=== PATIENT | female | born 1935 | race Caucasian/White ===

== ENCOUNTER 2018-01-25 20:30 | Emergency (ER) | payer MEDICARE, BC ==
[~2018-01-25] VITALS: Ht 165.1 cm; Wt 88.5 kg
[~2018-01-25 20:30] MED LIST: ACEBUTCAFT PO; ASPI325; ASPI325 PO; ASPI325EC PO; AZIT250 PO; Apidra Sol100 UNIT/1; Apidra100 UNIT/2; BENZ100A PO; CHOL10002; CYAN500 PO; EXEN5PENI SQ; EXEN5PENI SUBQ; Hair, Skin & N1 EACH PO; Humalog100 UNIT/1 SC; INSULANI SUBQ; INSULANPEN SC; LEVSOD100 PO; LEVSOD125 PO; LORA.5 PO; LORPSEER24 PO; MECL12.5 PO; MECL25 PO; MEPE50 PO; META800 PO; METF500 PO; METF500C PO; NEW INSULIN; NYST100TC TOP; OLME20 PO; OLME20-12. PO; PANT40; PANT40 PO; PROACE100 PO; PROC25S PR; PROM25 PO; SITA50T2 PO; Super B Comple150 MG PO; THYR60 PO; TUMERIC; UBID10; VITAMIN D31000 UNIT PO; Zofran Odt4 MG SL
== END 2018-01-25 22:02 | disposition home or self-care (01) ==
LOC: ER 20:30
DX: S92.412A Displaced fracture of proximal phalanx of left great toe, initial encounter for closed fracture (principal); E11.9 Type 2 diabetes mellitus without complications; Z88.8 Allergy status to other drugs, medicaments and biological substances; Z88.5 Allergy status to narcotic agent; Z91.09 Other allergy status, other than to drugs and biological substances; Z91.018 Allergy to other foods; Z79.899 Other long term (current) drug therapy; Z79.82 Long term (current) use of aspirin; Z79.4 Long term (current) use of insulin; Z87.891 Personal history of nicotine dependence; W22.8XXA Striking against or struck by other objects, initial encounter
CPT/HCPCS: 73630; 99283-25

== ENCOUNTER 2018-07-02 09:30 | Inpatient (IN) | payer MEDICARE, BC ==
[~2018-07-02] VITALS: Ht 165.1 cm; Wt 92.4 kg
[~2018-07-02 09:30] MED LIST changes: -ASPI325; -PANT40; -TUMERIC; +TUMERIC PO; +Zofran8 MG PO
[2018-07-02 09:51] LABS: BASOPHILS ABSOLUTE AUTO 0.05 K/mm3 (0.00-0.23); BASOPHILS PERCENT AUTO 1 % (0-2); EOSINOPHILS PERCENT AUTO 4 % (0-6); Hematocrit 43.9 % (33.0-51.0); Hemoglobin 14.8 g/dL (11.5-16.0); IMMATURE GRAN ABSOLUTE AUTO 0.01 K/mm3 (0.00-0.10); IMMATURE GRAN PERCENT AUTO 0 % (0-1); LYMPHOCYTES ABSOLUTE AUTO 2.29 K/mm3 (0.84-5.20); LYMPHOCYTES PERCENT AUTO 44 % (21-46); MONOCYTES ABSOLUTE AUTO 0.66 K/mm3 (0.16-1.47); MONOCYTES PERCENT AUTO 13 % (4-13); Mean Corpuscular HGB 31.7 pg (26.0-34.0); Mean Corpuscular HGB Conc 33.7 g/dL (31.5-36.5); Mean Corpuscular Volume 94 fL (80-100); Mean Platelet Volume 10.2 fL (9.1-12.4); NEUTROPHILS ABSOLUTE AUTO 2.04 K/mm3 (1.96-9.15); NEUTROPHILS PERCENT AUTO 39 % (41-73); Platelet Count 228 K/mm3 (150-400); RDW Coefficient Variation 12.4 % (11.7-14.2); RDW Standard Deviation 43.3 fL (35.1-46.3); Red Blood Cell Count 4.67 M/mm3 (3.80-5.20); White Blood Cell Count 5.25 K/mm3 (4.00-11.30)
[2018-07-02 09:55] LABS: Calcium, Ionized (POC) 1.16 mmol/L (1.10-1.46); Chloride (POC) 108 mmol/L (98-108); Creatinine (POC) 0.9 mg/dL (0.6-1.0); Glucose (ISTAT POC) 164 mg/dL (70-99); Hemoglobin (POC) 14.3 g/dL (12.0-16.0); Potassium (POC) 3.7 mmol/L (3.5-5.5); Sodium (POC) 144 mmol/L (135-148); Total CO2 (POC) 20 mmol/L (21-32)
[2018-07-02 10:13] LABS: Alanine Aminotransfer (ALT/SGP 40 U/L (12-78); Albumin, Blood 3.7 g/dL (3.4-5.0); Albumin/Globulin Ratio 1.2 (0.8-1.8); Alk Phos 52 U/L (50-136); Anion Gap 10 mmol/L (6-16); Aspartate Aminotrans (AST/SGOT 24 U/L (12-37); Bilirubin, Total 0.6 mg/dL (0.1-1.0); Blood Urea Nitrogen 27 mg/dL (8-24); Bun/Creatinine Ratio 28.8 (12.0-20.0); CO2, Blood 20 mmol/L (21-32); Calcium, Blood 8.6 mg/dL (8.5-10.1); Chloride, Blood 114 mmol/L (98-108); Creatinine, Blood 0.94 mg/dL (0.40-1.00); Globulin, Blood 3.2 g/dL (2.2-4.0); Glomerular Filtration Rate >60 (60-); Glucose, Blood 155 mg/dL (70-99); Potassium, Blood 3.7 mmol/L (3.5-5.5); Sodium, Blood 144 mmol/L (136-145); Total Protein, Blood 6.9 g/dL (6.4-8.2); Troponin I <0.015 ng/mL (0.000-0.040)
--- NOTE | 2018-07-02 18:52 | NUR ---
END OF SHIFT PT EDUCATED ON THE PLAN, VSS, PT HAS HAD NO CHANGES PT BP IS LOWERING WNL, VSS, PT HAS HAD FIRST DOSE OC COREG, PT ABLE TO AMBULATE TO TTHE BEDSIDE COMODE
[2018-07-03 04:03] LABS: BASOPHILS ABSOLUTE AUTO 0.03 K/mm3 (0.00-0.23); BASOPHILS PERCENT AUTO 0 % (0-2); EOSINOPHILS ABSOLUTE AUTO 0.14 K/mm3 (0.00-0.68); EOSINOPHILS PERCENT AUTO 2 % (0-6); Hematocrit 42.9 % (33.0-51.0); Hemoglobin 14.2 g/dL (11.5-16.0); IMMATURE GRAN ABSOLUTE AUTO 0.01 K/mm3 (0.00-0.10); IMMATURE GRAN PERCENT AUTO 0 % (0-1); LYMPHOCYTES ABSOLUTE AUTO 2.17 K/mm3 (0.84-5.20); LYMPHOCYTES PERCENT AUTO 33 % (21-46); MONOCYTES PERCENT AUTO 12 % (4-13); Mean Corpuscular HGB 31.7 pg (26.0-34.0); Mean Corpuscular HGB Conc 33.1 g/dL (31.5-36.5); Mean Corpuscular Volume 96 fL (80-100); NEUTROPHILS ABSOLUTE AUTO 3.53 K/mm3 (1.96-9.15); NEUTROPHILS PERCENT AUTO 53 % (41-73); Platelet Count 225 K/mm3 (150-400); RDW Coefficient Variation 12.5 % (11.7-14.2); RDW Standard Deviation 44.7 fL (35.1-46.3); Red Blood Cell Count 4.48 M/mm3 (3.80-5.20); White Blood Cell Count 6.68 K/mm3 (4.00-11.30)
[2018-07-03 04:25] LABS: Anion Gap 8 mmol/L (6-16); Blood Urea Nitrogen 20 mg/dL (8-24); CO2, Blood 23 mmol/L (21-32); Chloride, Blood 111 mmol/L (98-108); Creatinine, Blood 0.91 mg/dL (0.40-1.00); Free Thyroxine 1.06 ng/dL (0.70-1.60); Glomerular Filtration Rate >60 (60-); Glucose, Blood 112 mg/dL (70-99); Potassium, Blood 3.8 mmol/L (3.5-5.5); Sodium, Blood 142 mmol/L (136-145)
[2018-07-03 04:27] LABS: Troponin I 0.595 ng/mL (0.000-0.040)
--- NOTE | 2018-07-03 06:04 | NUR ---
SHIFT SUMMARY PATIENT PLEASENT AND COOPERATIVE THROUGHOUT THE NIGHT. PATIENT STATES SHE HAS MILD LEFT SHOULDER AND ARM PAIN THAT SHE STATES IS USUALLY AT ABOUT A 3/10 WHICH SHE SAYS IS TOLERABLE. PATIENT MEDICATED NEEDED FOR INCREASING PAIN PER EMAR. PATIENT APPEARED TO SLEEP WELL THROUGHOUT THE NIGHT. PATIENT'S DAUGHTER STAYED AT THE BEDSIDE. DR HOBBS MADE AWARE OF CRITICAL TROPONIN OF 0.595 THIS MORNING AND SHE GAVE NO ORDERS AT THIS TIME. PATIENT CURRENTLY APPEARS TO BE ASLEEP. WILL CONTINUE TO MONITOR PATIENT AND REPORT TO ONCOMING RN.
--- NOTE | 2018-07-03 14:28 | NUR ---
Echocardiogram completed.
--- NOTE | 2018-07-03 19:15 | NUR ---
END OF SHIFT PT HAS HAD NO CHAGNES, VSS, PT IS AWARE OF THE PLAN, FAMILY EDUCATED ON THE PLAN
--- NOTE | 2018-07-04 06:41 | NUR ---
SHIFT SUMMARY PT ADMITTED FOR CHEST PAIN AND HTN. AT THIS TIME HER BPS HAVE BEEN WNL. SHE DENIES ACTIVE CHEST PAIN. HER TROPS WERE ELEVATED BUT THEY ARE TRENDING DOWN. SHE IS SCHEDULED FOR A STRESS TEST TODAY. NO COVERAGE INDICATED AT HS. TELE WAS NSR IN THE 60S-80S. SHE REPORTS FEELING BETTER THIS MORNING AND IS AMBULATING INTO THE BATHROOM THIS MORNING RATHER THAN USING THE BSC. MEDICATED FOR LEFT SHOULDER PAIN PER EMAR. PT IS A&O, ABLE TO MAKE NEEDS KNOWN. WILL CTM UNTIL PASS TO NEXT SHIFT.
--- NOTE | 2018-07-04 09:15 | NUR ---
NAUSEA AND STRESS TEST PT C/O OF NAUSEA. MEDICATED WITH ZOFRAN PER PT REQUEST. SHE ASKED TO DELAY HER MORNING MEDICATIONS UNTIL HER STOMACH SETTLES. SHE WILL CALL. NPO FOR PENDING STRESS TEST. CALLED IMAGING. HAD TO REORDER YANCY SCAN A NUC. MED SCAN. CONFIRMED WITH IMAGING THAT NUC. MED TECH IS COMING IN. NOT SURE OF ETA. TALKED WITH PT/FAMILY ABOUT STRESS TEST. HOLDING BREAKFAST TRAY. CONTINUE POT.
--- NOTE | 2018-07-04 09:56 | NUR ---
MORNING PILLS NOTIFIED DR HOBBS AND DR BETHEA OF PT STOMACH BEING TOO UPSET TO TAKE PILLS. SHE DID TAKE HER PROTONIX WITH APPLE JUICE. CONTINUE POT.
--- NOTE | 2018-07-04 10:26 | NUR ---
Nausea Pt was injected for stress test. She needed to eat after. She choose to eat her hard boiled egg with salt and pepper, tea with stevia. She was able to eat 1 egg. Then asked for toast. She doesn't have emesis she just dry heaves. Continue pot.
--- NOTE | 2018-07-04 11:24 | NUR ---
STRESS TEST PT TRANSFERED TO / WITH 1 ASSIST FOR STRESS TEST. PT A LITTLE UNSTEADY AND SLEEPY AFTER RECEIVING PHENERGAN X1. CONTINUE POT.
--- NOTE | 2018-07-04 18:45 | NUR ---
EVENING NOTE PT AWAKE AND ALERT. SR. NO ECTOPY. PT HAS DENIED PAIN, SHOULDER PAIN OR CHEST PAIN ALL DAY. FIRST PART OF THE STRESS TEST COMPLETED. MRI COMPLETED. PT FELL ASLEEP IN THE MRI TUBE. VSS. PT NAUSEA SUBSIDED AFTER RECEIVING PHENERGAN AND A NAP. PT ABLE TO TAKE HER MORNING MEDICATIONS AND EAT DINNER WITHOUT DIFFICULTY. PT THINKS THE NAUSEA WAS FROM THE OXYCODONE THAT SHE WAS TAKING. CONTINUE POT.
--- NOTE | 2018-07-05 05:51 | NUR ---
SUMMARY NO ACUTE CHANGES NOTED FROM ASSESSMENT. PT REPORTED PAIN X1, SHE WAS TREATED WITH TORADOL, PAIN WAS RELIEVED. PT HAS SLEPT THROUGH THE NIGHT WITH NO PROBLEMS. CALL LIGHT IN [facility].
--- NOTE | 2018-07-05 13:01 | NUR ---
DAVID SCAN PT COMPLETED THE SECOND PART OF THE SCAN. SHE NOW HAS A HEADACHE. SITTINGUP DRINKING AND EATING LUNCH. SPOUCE AT BEDSIDE. CONTINUE POT.
--- NOTE | 2018-07-06 05:27 | NUR ---
SHIFT SUMMARY PT A&O X4, CALM COOPERATIVE, & INDEPENDENT IN ROOM. FAMILY AT BEDSIDE BEGINNING OF SHIFT. PT DENYING CP T/O SHIFT. VSS. LUNG SOUNDS CLEAR, SPO2 > 92% ON RA. MONITOR SHOWS SB/SR, HR 50'S-60'S. PT STATES CONINUANCE OF L SHOULDER PAIN, TX'D PER EMAR W/ REDUCTION IN PAIN. PT SLEEPING IN ROOM. WILL CONTINUE TO MONITOR AND PROVIDE CARE UNTIL REPORT OFF TO DAY SHIFT RN.
--- NOTE | 2018-07-06 07:51 | NUR ---
INITIAL ASSESSEMTN: Pt sitting up at edge of bed. A/O x 4. Denies having any pain at this time. States that she feels good. LS clear. HR reg, bradycardic in the 50's. BT positive. Pulses palp. Physician in to see client. Plan for discharge today. Pt denies needs. Will monitor.
[2018-07-06] MEDS ORDERED: ATORVASTATIN CA20 MG PO (10:43)
[2018-07-06] MEDS ORDERED: METO25 PO (10:43)
--- NOTE | 2018-07-06 11:04 | NUR ---
DISCHARGE: Pt given verbal and written discharge instructions. Verbalized understanding, denies questions. IV was discontinued and cath intact. Pt denies pain, questions, issues. Escort called and will take patient out via w/c. Stable at time of discharge.
== END 2018-07-06 11:05 | disposition home or self-care (01) | DRG 305 ==
LOC: ER 09:30 → PCU 09:31
PROVIDERS: Emergency Medicine; ADMIT Family Medicine
DX: I16.1 Hypertensive emergency (principal); M19.90 Unspecified osteoarthritis, unspecified site; E03.9 Hypothyroidism, unspecified; K44.9 Diaphragmatic hernia without obstruction or gangrene; Z86.73 Personal history of transient ischemic attack (TIA), and cerebral infarction without residual deficits; Z96.641 Presence of right artificial hip joint; I10 Essential (primary) hypertension; Z87.891 Personal history of nicotine dependence; Z79.4 Long term (current) use of insulin; E66.9 Obesity, unspecified; Z89.212 Acquired absence of left upper limb below elbow; Z68.33 Body mass index [BMI] 33.0-33.9, adult; M54.12 Radiculopathy, cervical region; M48.02 Spinal stenosis, cervical region; Z79.82 Long term (current) use of aspirin
CPT/HCPCS: 36415; 71275; 72040; 72070; 72141; 74175; 78452; 80047; 80048; 80053; 82947; 84439; 84443; 84480; 84484; 85014; 85025; 85651; 93005; 93010; 93017; 93306; 96374; 96375; 96376; 99285-25; A9500; G0378; J0706; J1650; J1885; J2060; J2405; J2550; J2785; J3010; Q9967

== ENCOUNTER 2018-11-25 22:25 | Emergency (ER) | payer MEDICARE, BC ==
[~2018-11-25] VITALS: Ht 165.1 cm; Wt 93.0 kg
[~2018-11-25 22:25] MED LIST changes: +ATORVASTATIN CA20 MG PO; +METO25 PO
[2018-11-26 00:02] LABS: BASOPHILS ABSOLUTE AUTO 0.02 K/mm3 (0.00-0.23); BASOPHILS PERCENT AUTO 0 % (0-2); EOSINOPHILS ABSOLUTE AUTO 0.06 K/mm3 (0.00-0.68); EOSINOPHILS PERCENT AUTO 1 % (0-6); Hematocrit 42.7 % (33.0-51.0); Hemoglobin 14.3 g/dL (11.5-16.0); IMMATURE GRAN ABSOLUTE AUTO 0.01 K/mm3 (0.00-0.10); IMMATURE GRAN PERCENT AUTO 0 % (0-1); LYMPHOCYTES ABSOLUTE AUTO 1.14 K/mm3 (0.84-5.20); LYMPHOCYTES PERCENT AUTO 19 % (21-46); MONOCYTES ABSOLUTE AUTO 0.62 K/mm3 (0.16-1.47); MONOCYTES PERCENT AUTO 10 % (4-13); Mean Corpuscular HGB 32.2 pg (26.0-34.0); Mean Corpuscular HGB Conc 33.5 g/dL (31.5-36.5); Mean Corpuscular Volume 96 fL (80-100); NEUTROPHILS ABSOLUTE AUTO 4.28 K/mm3 (1.96-9.15); NEUTROPHILS PERCENT AUTO 70 % (41-73); RDW Coefficient Variation 12.5 % (11.7-14.2); RDW Standard Deviation 45.2 fL (35.1-46.3); Red Blood Cell Count 4.44 M/mm3 (3.80-5.20); White Blood Cell Count 6.13 K/mm3 (4.00-11.30)
[2018-11-26 00:04] LABS: Mean Platelet Volume 10.2 fL (9.1-12.4); Platelet Count 116 K/mm3 (150-400)
[2018-11-26 00:20] LABS: Alanine Aminotransfer (ALT/SGP 19 U/L (12-78); Albumin, Blood 3.4 g/dL (3.4-5.0); Albumin/Globulin Ratio 0.9 (0.8-1.8); Alk Phos 50 U/L (50-136); Anion Gap 9 mmol/L (6-16); Aspartate Aminotrans (AST/SGOT 18 U/L (12-37); Bilirubin, Total 0.5 mg/dL (0.1-1.0); Blood Urea Nitrogen 21 mg/dL (8-24); Bun/Creatinine Ratio 21.1 (12.0-20.0); CO2, Blood 20 mmol/L (21-32); Calcium, Blood 8.3 mg/dL (8.5-10.1); Chloride, Blood 110 mmol/L (98-108); Globulin, Blood 3.8 g/dL (2.2-4.0); Glomerular Filtration Rate 57 (60-); Glucose, Blood 82 mg/dL (70-99); Potassium, Blood 3.9 mmol/L (3.5-5.5); Sodium, Blood 139 mmol/L (136-145); Total Protein, Blood 7.2 g/dL (6.4-8.2); Troponin I <0.015 ng/mL (0.000-0.040)
[2018-11-26 00:21] LABS: Source, Urine Clean Catch
[2018-11-26 00:24] LABS: Appearance, Urine Clear (Clear); Bilirubin, Urine Neg (Neg); Blood, Urine 1+ (Neg); Color, Urine Amber (P-Yellow); Glucose Qualitative, Urine Neg (Neg); Ketones, Urine 2+ (Neg); Leukocyte Esterase, Urine 1+ (Neg); Nitrite, Urine Neg (Neg); Protein, Urine 1+ (Neg); Specific Gravity, Urine 1.015 (1.003-1.022); Urobilinogen, Urine NORM (Normal)
[2018-11-26 00:31] LABS: Bacteria Many /hpf; Red Blood Cells, Urine 0-2 /hpf (0-2); Squamous Epithelial Cells Mod /hpf (Few)
[2018-11-26] MEDS ORDERED: CEPH500 PO (00:48)
[2019-01-25] MEDS ORDERED: PANT40 PO (11:18)
[2019-01-25] MEDS ORDERED: NP THYROID 120120 MG PO (11:18)
[2019-01-25] MEDS ORDERED: Aspir-Trin325 MG PO (11:19)
[2019-01-25] MEDS ORDERED: INSULANPEN SC ×2 (11:20→11:21)
[2019-01-25] MEDS ORDERED: GLIM2 PO (11:21)
[2019-01-25] MEDS ORDERED: MOTION RELIEF25 MG PO (11:21)
[2019-01-25] MEDS ORDERED: Azor 5-20 MG T1 EACH PO (11:22)
[2019-01-25] MEDS ORDERED: POTCHL20ER PO (11:23)
== END 2018-11-26 01:40 | disposition home or self-care (01) ==
LOC: ER 22:25
PROVIDERS: Physician Assistant
DX: N39.0 Urinary tract infection, site not specified (principal); Z88.8 Allergy status to other drugs, medicaments and biological substances; Z88.5 Allergy status to narcotic agent; Z79.899 Other long term (current) drug therapy; Z79.4 Long term (current) use of insulin; Z79.82 Long term (current) use of aspirin; E11.9 Type 2 diabetes mellitus without complications; Z86.73 Personal history of transient ischemic attack (TIA), and cerebral infarction without residual deficits; I10 Essential (primary) hypertension; E78.00 Pure hypercholesterolemia, unspecified; E03.9 Hypothyroidism, unspecified; Z87.891 Personal history of nicotine dependence
CPT/HCPCS: 36415; 71046; 80053; 81001; 83605; 83880; 84484; 85025; 87040; 87086; 93005; 93010; 96361; 96374; 96375; 99283-25; J0696; J2405; J7030

== ENCOUNTER 2018-12-24 02:15 | Inpatient (IN) | payer MEDICARE, BC ==
[~2018-12-24] VITALS: Ht 165.1 cm; Wt 98.4 kg
[~2018-12-24 02:15] MED LIST changes: +CEPH500 PO
[2018-12-24 03:13] LABS: BASOPHILS ABSOLUTE AUTO 0.02 K/mm3 (0.00-0.23); BASOPHILS PERCENT AUTO 0 % (0-2); EOSINOPHILS PERCENT AUTO 0 % (0-6); Hematocrit 49.9 % (33.0-51.0); Hemoglobin 16.6 g/dL (11.5-16.0); IMMATURE GRAN ABSOLUTE AUTO 0.05 K/mm3 (0.00-0.10); IMMATURE GRAN PERCENT AUTO 0 % (0-1); LYMPHOCYTES ABSOLUTE AUTO 1.03 K/mm3 (0.84-5.20); LYMPHOCYTES PERCENT AUTO 7 % (21-46); MONOCYTES PERCENT AUTO 7 % (4-13); Mean Corpuscular HGB 31.6 pg (26.0-34.0); Mean Corpuscular HGB Conc 33.3 g/dL (31.5-36.5); Mean Corpuscular Volume 95 fL (80-100); Mean Platelet Volume 10.9 fL (9.1-12.4); NEUTROPHILS ABSOLUTE AUTO 12.67 K/mm3 (1.96-9.15); NEUTROPHILS PERCENT AUTO 86 % (41-73); Platelet Count 243 K/mm3 (150-400); RDW Coefficient Variation 13.2 % (11.7-14.2); RDW Standard Deviation 46.1 fL (35.1-46.3); Red Blood Cell Count 5.25 M/mm3 (3.80-5.20); White Blood Cell Count 14.77 K/mm3 (4.00-11.30)
[2018-12-24 04:43] LABS: Alanine Aminotransfer (ALT/SGP 22 U/L (12-78); Albumin, Blood 3.4 g/dL (3.4-5.0); Alk Phos 50 U/L (50-136); Anion Gap 10 mmol/L (6-16); Aspartate Aminotrans (AST/SGOT 14 U/L (12-37); Bilirubin, Total 0.4 mg/dL (0.1-1.0); Blood Urea Nitrogen 33 mg/dL (8-24); Bun/Creatinine Ratio 37.6 (12.0-20.0); CO2, Blood 19 mmol/L (21-32); Chloride, Blood 112 mmol/L (98-108); Creatinine, Blood 0.88 mg/dL (0.40-1.00); Globulin, Blood 3.3 g/dL (2.2-4.0); Glomerular Filtration Rate >60 (60-); Glucose, Blood 215 mg/dL (70-99); Potassium, Blood 3.2 mmol/L (3.5-5.5); Sodium, Blood 141 mmol/L (136-145); Total Protein, Blood 6.7 g/dL (6.4-8.2)
[2018-12-24 11:42] LABS: Hematocrit 51.5 % (33.0-51.0); Hemoglobin 16.8 g/dL (11.5-16.0)
--- NOTE | 2018-12-24 17:40 | NUR ---
SHIFT SUMMARY PT ALERT AND ORIENTED. VS STABLE. O2 SATS REMAIN ABOVE 90% ON 2L NC. PT COMPLAINS OF PAIN IN HER ABD THAT IS RELEIVED WITH MEDICATION ADMINISTRATION. PT HAVING LIQUID RED BM. NS INFUSING PER ORDERS. WILL CONTINUE TO MONITOR AND REPORT TO ONCOMING RN. CALL LIGHT IN REACH.
--- NOTE | 2018-12-24 20:52 | NUR ---
CARE ASSUMPTION / TRANSFER NOTE PT MEDICAL NO TELE STATUS. PT A&O X4. VSS. PT ON 1L NC UPON CARE ASSUMPTION, TITRATED TO RA W/ SPO2 > 92%. LUNG SOUNDS CLEAR, DIM IN BASES. PT REPORTS 1 ORAGE/RED BM DURING DAY. ABD TENDER AND DISTENDED. PT C/O 10 "SHARP" LOWER ABD PAIN. PT MEDICATED PER EMAR W/ REDUCTION IN PAIN TO 3/10. REPORT CALLED TO MEDICAL FLOOR RN @ 2039. PT BEING TRANSFERRED TO ROOM 306 VIA WHEELCHAIR BY PCT @ THIS TIME.
[2018-12-25 06:14] LABS: BASOPHILS ABSOLUTE AUTO 0.05 K/mm3 (0.00-0.23); BASOPHILS PERCENT AUTO 0 % (0-2); EOSINOPHILS ABSOLUTE AUTO 0.11 K/mm3 (0.00-0.68); EOSINOPHILS PERCENT AUTO 1 % (0-6); Hematocrit 47.6 % (33.0-51.0); Hemoglobin 15.2 g/dL (11.5-16.0); IMMATURE GRAN ABSOLUTE AUTO 0.05 K/mm3 (0.00-0.10); IMMATURE GRAN PERCENT AUTO 0 % (0-1); LYMPHOCYTES PERCENT AUTO 7 % (21-46); MONOCYTES PERCENT AUTO 9 % (4-13); Mean Corpuscular HGB 31.1 pg (26.0-34.0); Mean Corpuscular HGB Conc 31.9 g/dL (31.5-36.5); Mean Platelet Volume 10.5 fL (9.1-12.4); NEUTROPHILS ABSOLUTE AUTO 10.95 K/mm3 (1.96-9.15); NEUTROPHILS PERCENT AUTO 83 % (41-73); Platelet Count 189 K/mm3 (150-400); RDW Coefficient Variation 13.8 % (11.7-14.2); RDW Standard Deviation 49.9 fL (35.1-46.3); Red Blood Cell Count 4.88 M/mm3 (3.80-5.20); White Blood Cell Count 13.26 K/mm3 (4.00-11.30)
[2018-12-25 06:17] LABS: Mean Corpuscular Volume 98 fL (80-100)
[2018-12-25 06:25] LABS: Bun/Creatinine Ratio 15.1 (12.0-20.0); Calcium, Blood 7.6 mg/dL (8.5-10.1); Creatinine, Blood 1.06 mg/dL (0.40-1.00); Potassium, Blood 3.7 mmol/L (3.5-5.5)
--- NOTE | 2018-12-25 06:36 | NUR ---
SHIFT SUMMARY PT TRANSFERED FROM PCU 11 THIS EVENING. ABD PAIN AT START OF SHIFT. MEDICATED WITH 1 MG DILAUDID. PT SLEPT WELL FROM APPROX 2200 TO 0400. WHEN WAKING PT BEGAN TO HAVE ABD PAIN/CRAMPS AGAIN. MEDICATED AGAIN W/ 1 MG DILAUDID. SOON AFTER PT'S IV BEGAN BURNING PATIENT. IV INFILTRATED. ATTEMPTED NEW IV START. JONNY ESTRADA ALSO CAME UP AND ATTEMPTED WITH ULTRASOUND MACHINE AND WAS UNSUCCESSFUL. PROCEDURE NURSE TODAY TO PLACE POWERGLIDE. PT HAD 2 EPISODES OF UNFORMED STOOL, ORANGE/RED IN COLOR. SMALL AMOUNT. VSS. DAUGHTER AT BEDSIDE AT START OF SHIFT. SUPPORTIVE FAMILY. WILL CONTINUE TO MONITOR.
--- NOTE | 2018-12-25 10:40 | NUR ---
SHE HAD A POWERGLIDE INSERTED BEFORE 0830. IV FLUIDS AND MEDICATIONS RESUMED. SHE TOOK A COUPLE OF BITES OF BREAKFAST ONLY. SHE HAD A SMALL JELLY BROWN STOOL. SHE WAS MEDICATED WITH IV DILAUDID WITH GOOD RESULTS. NO N/V. NOW HER IS AT THE BEDSIDE AND HER DAUGHTER YAS CALLED ON THE PHONE FOR AN UPDATE.
--- NOTE | 2018-12-25 13:51 | NUR ---
PT IS EVALUATING HER NOW. SHE JUST AMBULATED IN THE [place] A SHORT DISTANCE AND NOW IS ON THE BSC. HER FAMILY HAS JUST RETURNED BUT WAITING IN THE [place] UNTIL SHE IS OFF THE BSC. DILAUDID IS EFFECTIVE FOR INTERMITTENT PAIN RELIEF.
--- NOTE | 2018-12-25 17:35 | NUR ---
SHE HAS RECEIVED DILAUDID IV FOR COLITIS PAIN X3 THIS SHIFT. THIS LAST TIME THE PAIN SHIFTED AWAY FROM THE ABD AND INTO HER BACK, R FLANK. SHE ALSO FELT LIKE SHE HAD TROUBLE EMPTYING HER BLADDER A COUPLE OF TIMES TODAY. SHE FELT HER LAST VOID WAS COMPLETE. DINNER CBG 66. GIVEN OJ TO DRINK. HER APPETITE HAS BEEN VERY POOR.PT EVAL WAS DONE. SHE AMBULATES WITH A CANE.IVF'S AND ANTIBIOTICS CONTINUE.
--- NOTE | 2018-12-26 05:37 | NUR ---
SHIFT SUMMARY PT'S ABD DISCOMFORT IMPROVED THIS EVENING. MEDICATED X 1 AT START OF SHIFT W/ 1 MG IV DILAUDID, PT DID NOT REQUIRE ANY FURTHER PAIN MEDICATION. PT SLEPT WELL THROUGH MOST OF THE NIGHT. PT HAD TWO SMALL UNFORMED BROWN BM'S. NO SIGN OF BLOOD IN STOOL THIS EVENING. PT WAS EXPERIENCING SOME R SIDED FLANK PAIN. SHE STATED THAT SHE HAD JUST BEEN GETTING OVER A KIDNEY INFECTION RECENTLY AND BELIEVES SHE IS GETTING ANOTHER ONE. PT'S BLOOD SUGAR LOWER AT 114 THIS EVENING. PT DECLINED TO HAVE HER LANTUS DOSE THIS EVENING. BLOOD SUGAR REMAINED LOW IN THE 110'S AND LOW 70'S. VITAL SIGNS STABLE. OTHERWISE NO ACUTE CHANGES. WILL CONTINUE TO MONITOR.
[2018-12-26 10:16] LABS: BASOPHILS ABSOLUTE AUTO 0.01 K/mm3 (0.00-0.23); BASOPHILS PERCENT AUTO 0 % (0-2); EOSINOPHILS ABSOLUTE AUTO 0.76 K/mm3 (0.00-0.68); EOSINOPHILS PERCENT AUTO 9 % (0-6); Hemoglobin 12.6 g/dL (11.5-16.0); IMMATURE GRAN ABSOLUTE AUTO 0.03 K/mm3 (0.00-0.10); IMMATURE GRAN PERCENT AUTO 0 % (0-1); LYMPHOCYTES ABSOLUTE AUTO 0.61 K/mm3 (0.84-5.20); LYMPHOCYTES PERCENT AUTO 7 % (21-46); MONOCYTES ABSOLUTE AUTO 0.81 K/mm3 (0.16-1.47); MONOCYTES PERCENT AUTO 9 % (4-13); Mean Corpuscular HGB 31.8 pg (26.0-34.0); Mean Corpuscular HGB Conc 32.3 g/dL (31.5-36.5); Mean Corpuscular Volume 99 fL (80-100); Mean Platelet Volume 10.6 fL (9.1-12.4); NEUTROPHILS ABSOLUTE AUTO 6.43 K/mm3 (1.96-9.15); NEUTROPHILS PERCENT AUTO 74 % (41-73); Platelet Count 133 K/mm3 (150-400); RDW Coefficient Variation 13.5 % (11.7-14.2); RDW Standard Deviation 48.8 fL (35.1-46.3); Red Blood Cell Count 3.96 M/mm3 (3.80-5.20); White Blood Cell Count 8.65 K/mm3 (4.00-11.30)
[2018-12-26 10:32] LABS: Anion Gap 5 mmol/L (6-16); Blood Urea Nitrogen 10 mg/dL (8-24); Bun/Creatinine Ratio 11.3 (12.0-20.0); CO2, Blood 22 mmol/L (21-32); Calcium, Blood 7.2 mg/dL (8.5-10.1); Chloride, Blood 118 mmol/L (98-108); Creatinine, Blood 0.89 mg/dL (0.40-1.00); Glomerular Filtration Rate >60 (60-); Glucose, Blood 148 mg/dL (70-99); Potassium, Blood 3.4 mmol/L (3.5-5.5); Sodium, Blood 145 mmol/L (136-145)
--- NOTE | 2018-12-26 17:04 | NUR ---
SHIFT SUMMARY PATIENT IS PLEASANT, ALERT AND ORIENTED AND SBA TO INDEPENDENT. SHE IS DOING WELL, NO MORE BLOODY STOOL. IS GETTING UP NEEDED AND HAS WALKED ONCE TODAY. SHE WAS STARTED ON PHENERGAN FOR NAUSEA TODAY WHICH HELPED WITH THE COLITIS PAIN WELL. NO ACUTE CONCERNS AT THIS TIME.
--- NOTE | 2018-12-27 05:49 | NUR ---
SHIFT SUMMARY PT HAD DIFFICULT NIGHT. MORE PAINFUL THIS EVENING THAN PREVIOUS SHIFTS. REQUIRING 1 MG IV DILAUDID ALMOST EVERY 2 HOURS. PT FEELS IF PAIN IS MIGRATING, REPORTING THAT SHE FEELS IF ITS IN HER "LIVER" THIS EVENING. THIS AM PT REPORTS THAT PAIN WAS SEVERE ENOUGH THAT SHE HAD NAUSEA ASSOCIATED WITH IT. SHE REPORTED THAT THIS HAD HAPPENED DURING THE DAY WELL. MEDICATED WITH PHENERGAN 25 MG. VERY EFFECTIVE. PT APPEARS TO BE SLEEPING COMFORTABLY AT THIS TIME. VERY MIDLY FEBRILE TONIGHT WITH TEMP OF 99.9 AT START OF SHIFT. TYLENOL GIVEN. AFEBRILE THIS AM. SLIGHT AUDIBLE WHEEZE NOTED WITH BREATHING. VITAL SIGNS STABLE. WILL CONTINUE TO MONITOR.
--- NOTE | 2018-12-27 16:57 | NUR ---
SHIFT SUMMARY 83 YR OLD FEMALE ADMITTED FOR COLITIS. NO BOWEL MOVEMENT THIS SHIFT. PT DID DEVELOP A RASH ON HER ARM AND ABDOMEN TODAY. DR ORDERED CLARITIN A RESULT. PT HAS REQUESTED DILAUDID FOR PAIN AND ZOFRAN FOR NAUSEA THROUGHOUT SHIFT. SHE IS A&O X4 AND ABLE TO CALL APPROPRIATELY. SHE HAS NOT HAD AN APPETITE TODAY BUT SHE DID GET SOME WATERMELON DOWN AND A POPSICLE. SHE DID REQUIRE INSULIN COVERAGE OF 3 UNITS AT LUNCH TIME. PT DID HAVE HER WALKING IN THE HALLS.
--- NOTE | 2018-12-27 19:07 | NUR ---
CALLED HOSPITALIST PT CONFUSED, NEW ONSET. DR SUGGESTED WE GIVE 0.5 MG OF DILAUDID (HALF THE DOSE WE HAVE BEEN) AND STRETCH OUT TO THREE HOURS BETWEEN DOSES
--- NOTE | 2018-12-28 04:44 | NUR ---
SHIFT SUMMARY PT CONFUSION HAS IMPROVED WITH DOSE DECREASE AND INTERVAL INCREASE. PT PAIN HAS BEEN MANAGED WELL T/O SHIFT. PT HAD A TEMP AND WAS GIVEN TYLENOL WITH GOOD RESULT. PT CURRENTLY SLEEPING IN NO DISTRESS. CALL LIGHT IN REACH.
--- NOTE | 2018-12-28 07:10 | NUR ---
ASSUMED CARE: PT RESTING QUIETLY. DENIES NEEDS OR CONCERNS AT THIS TIME.
--- NOTE | 2018-12-28 07:53 | NUR ---
DR TEMPLE HERE TO SEE PT. ORDERS FOR STOOL SAMPLE. CASER UP AWARE.
--- NOTE | 2018-12-28 18:52 | NUR ---
SHIFT SUMMARY: PT'S DAUGHTER HAS BEEN AT BEDSIDE THROUGHOUT DAY. PT REQUESTING LOWER DOSES OF DILUADID SO NOT TO MAKE HER "LOOPY." PT HAS BEEN AMBULATORY T/O SHIFT WITH ASSISTANCE OF DAUGHTER. ADMINISTERED TYLENOL ONCE FOR BREAKTHROUGH PAIN. SMALL AMOUNT OF EMESIS AFTER DINNER BUT DENIED NEED FOR NAUSEA MEDICATION. NO FURTHER NEEDS OR CONCERNS AT THIS TIME.
[2018-12-29 05:02] LABS: BASOPHILS ABSOLUTE AUTO 0.02 K/mm3 (0.00-0.23); BASOPHILS PERCENT AUTO 0 % (0-2); EOSINOPHILS ABSOLUTE AUTO 0.68 K/mm3 (0.00-0.68); EOSINOPHILS PERCENT AUTO 11 % (0-6); Hematocrit 38.4 % (33.0-51.0); Hemoglobin 12.9 g/dL (11.5-16.0); IMMATURE GRAN ABSOLUTE AUTO 0.03 K/mm3 (0.00-0.10); IMMATURE GRAN PERCENT AUTO 1 % (0-1); LYMPHOCYTES ABSOLUTE AUTO 1.08 K/mm3 (0.84-5.20); LYMPHOCYTES PERCENT AUTO 18 % (21-46); MONOCYTES ABSOLUTE AUTO 0.65 K/mm3 (0.16-1.47); MONOCYTES PERCENT AUTO 11 % (4-13); Mean Corpuscular HGB 32.4 pg (26.0-34.0); Mean Corpuscular HGB Conc 33.6 g/dL (31.5-36.5); Mean Corpuscular Volume 97 fL (80-100); Mean Platelet Volume 10.9 fL (9.1-12.4); NEUTROPHILS ABSOLUTE AUTO 3.62 K/mm3 (1.96-9.15); NEUTROPHILS PERCENT AUTO 60 % (41-73); Platelet Count 199 K/mm3 (150-400); RDW Coefficient Variation 13.5 % (11.7-14.2); RDW Standard Deviation 47.9 fL (35.1-46.3); Red Blood Cell Count 3.98 M/mm3 (3.80-5.20); White Blood Cell Count 6.08 K/mm3 (4.00-11.30)
--- NOTE | 2018-12-29 05:25 | NUR ---
SHIFT SUMMARY- PT. HAS DENIED THE NEED FOR PAIN MEDICATION T/O THE NIGHT. C/O DISCOMFORT AT THE IV SITE, POWERGLIDE INFILTRATION NOTED. UNABLE TO OBTAIN IV ACCESS TONIGHT, PT. A DIFFICULT STICK. NOTIFIED PROVIDER. ORDER RECEIVED TO SWITCH IV ABX TO PO AND KEEP IV OUT FOR NOW. IV ACCESS TO BE READDRESSED DURING DAY SHIFT. POWERGLIDE TO RT UA REMOVED, CATHETER INTACT NO REDNESS OR SWELLING NOTED. COVERED SITE WITH GAUZE AND BANDAGE. PT. TOLERATED WELL. PT. UP TO BSC WITH ASSISTANCE. PT. HAVING LOOSE STOOLS. SAMPLE SENT FOR CULTURE. DENIES ANY FURTHER NEEDS. CALL LIGHT WITHIN REACH AND SIDE RAILS UP X2. WILL CONT TO MONITOR.
[2018-12-29 05:31] LABS: Alanine Aminotransfer (ALT/SGP 15 U/L (12-78); Albumin, Blood 2.5 g/dL (3.4-5.0); Albumin/Globulin Ratio 0.8 (0.8-1.8); Alk Phos 44 U/L (50-136); Anion Gap 6 mmol/L (6-16); Aspartate Aminotrans (AST/SGOT 19 U/L (12-37); Bilirubin, Total 0.3 mg/dL (0.1-1.0); Blood Urea Nitrogen 4 mg/dL (8-24); Bun/Creatinine Ratio 5.1 (12.0-20.0); CO2, Blood 26 mmol/L (21-32); Chloride, Blood 117 mmol/L (98-108); Creatinine, Blood 0.78 mg/dL (0.40-1.00); Glomerular Filtration Rate >60 (60-); Glucose, Blood 149 mg/dL (70-99); Potassium, Blood 3.1 mmol/L (3.5-5.5); Sodium, Blood 149 mmol/L (136-145); Total Protein, Blood 5.5 g/dL (6.4-8.2)
--- NOTE | 2018-12-29 08:40 | NUR ---
DAYSHIFT ASSSUMED CARE OF PT APPROX. 0700. PT A&OX4. PT ASSESSMENT COMPLETED. VITAL SIGNS STABLE. PHYSICIAN IN TO SEE PT THIS MORNING. RASH NOTED ON BLE AND ABDOMEN DISCUSSED WITH PHYSICIAN. NO CHANGES IN ORDERS AT THIS TIME. PT REPORTS APPETITE SLIGHTLY LESS THAN BASELINE BUT STILL ABLE TO EAT SOMETHING. PT REPROTS FEELING WELL THIS MORNING. NOTIFIED PHYSICIAN OF MORNING POTASSIUM LEVELS. AWAITING ORDERS. PMD REPORTS PT OKAY TO GO HOME. WILL AWAIT DISCHARGE ORDERS.
[2018-12-29] MEDS ORDERED: ACET325 PO (10:05)
[2018-12-29] MEDS ORDERED: Azor 5-20 MG T1 EACH PO (10:06)
[2018-12-29] MEDS ORDERED: CEFP500 PO (10:07)
[2018-12-29] MEDS ORDERED: Oyster Shell C500 MG PO (10:07)
[2018-12-29] MEDS ORDERED: Dicyclomine HCl10 MG PO (10:09)
[2018-12-29] MEDS ORDERED: Culturelle1 CAP PO (10:10)
[2018-12-29] MEDS ORDERED: Loratadine10 MG PO (10:11)
[2018-12-29] MEDS ORDERED: ONDA4ODT MM (10:12)
[2018-12-29] MEDS ORDERED: METR500 PO (10:12)
[2018-12-29] MEDS ORDERED: POTCHL20ER PO (10:13)
--- NOTE | 2018-12-29 11:05 | NUR ---
DISCHARGE RECIEVED DISCHARGE ORDERS. DISCHARGE PROCESS COMPLETED. MEDICATIONS FAXED TO [facility]. CALLED TO VERIFY THEY HAD RECIEVED THESE. REVIEWED DISCHARGE ORDERS WITH PT AND SPOUSE. ANSWERED QUESTIONS. NO IV ACCESS IN PATIENT. PT TO BE ESCORTED VIA WHEELCHAIR BY PEER STAFF TO AUTOMOBILE. WILL MONITOR UNTIL EPARTURE.
[2019-01-25] MEDS ORDERED: NP THYROID 120120 MG PO (11:18)
[2019-01-25] MEDS ORDERED: PANT40 PO (11:18)
[2019-01-25] MEDS ORDERED: Aspir-Trin325 MG PO (11:19)
[2019-01-25] MEDS ORDERED: INSULANPEN SC ×2 (11:20→11:21)
[2019-01-25] MEDS ORDERED: MOTION RELIEF25 MG PO (11:21)
[2019-01-25] MEDS ORDERED: GLIM2 PO (11:21)
[2019-01-25] MEDS ORDERED: Azor 5-20 MG T1 EACH PO (11:22)
[2019-01-25] MEDS ORDERED: POTCHL20ER PO (11:23)
== END 2018-12-29 11:16 | disposition home or self-care (01) | DRG 392 ==
LOC: ER 02:15 → MEDS 05:56 → PCU 08:14 → MEDS 20:55 → ENPENDDIS 12-29 10:00 → MEDS 12-29 11:16
PROVIDERS: Emergency Medicine; Family Medicine; ADMIT Hospitalist
DX: K52.9 Noninfective gastroenteritis and colitis, unspecified (principal); Z87.891 Personal history of nicotine dependence; Z79.4 Long term (current) use of insulin; K22.70 Barrett's esophagus without dysplasia; E03.9 Hypothyroidism, unspecified; M19.90 Unspecified osteoarthritis, unspecified site; Z89.212 Acquired absence of left upper limb below elbow; Z96.641 Presence of right artificial hip joint; E87.6 Hypokalemia; E11.649 Type 2 diabetes mellitus with hypoglycemia without coma; I16.0 Hypertensive urgency; D72.829 Elevated white blood cell count, unspecified
CPT/HCPCS: 36415; 74176; 80048; 80053; 82330; 82947; 83690; 85014; 85018; 85025; 86850; 86900; 86901; 87015; 87045; 87046; 87205; 87493; 87899; 96361; 96365; 96367; 96375; 97116; 97161; 97530; 99285-25; A9270; A9270-GY; C1751; J0696; J1170; J2405; J2550; J3010; J7030

== ENCOUNTER → 2019-01-13 | Outpatient (CLI) | payer MEDICARE, BC ==
[~2019-01-13] MED LIST changes: +ACET325 PO; +Aspir-Trin325 MG PO; +Azor 5-20 MG T1 EACH PO; +CEFP500 PO; +Culturelle1 CAP PO; +Dicyclomine HCl10 MG PO; +GLIM2 PO; +Loratadine10 MG PO; +METR500 PO; +MOTION RELIEF25 MG PO; +NP THYROID 120120 MG PO; +ONDA4ODT MM; +Oyster Shell C500 MG PO; +POTCHL20ER PO
[2019-01-13 21:04] LABS: Adenovirus F 40/41 Not Detected (NOT DETECT); Astrovirus Not Detected (NOT DETECT); Campylobacter Sp Not Detected (NOT DETECT); Cryptosporidium Not Detected (NOT DETECT); Cyclospora Cayetanensis Not Detected (NOT DETECT); E. Coli O157 Not Detected (NOT DETECT); Entamoeba Histolytica Not Detected (NOT DETECT); Enteroaggregative E. coli-EAEC Not Detected (NOT DETECT); Enteropathogenic E. coli-EPEC Not Detected (NOT DETECT); Enterotoxigenic E. coli-ETEC Not Detected (NOT DETECT); Giardia Lamblia Not Detected (NOT DETECT); Norovirus GI/GII Not Detected (NOT DETECT); Plesiomonas Shigelloides Not Detected (NOT DETECT); Rotavirus A Not Detected (NOT DETECT); Salmonella Sp Not Detected (NOT DETECT); Sapovirus Not Detected (NOT DETECT); Shiga Toxin-prod E. coli-STEC Not Detected (NOT DETECT); Shigella/Enteroin E. coli-EIEC Not Detected (NOT DETECT); Vibrio Cholerae Not Detected (NOT DETECT); Vibrio Sp Not Detected (NOT DETECT); Yersinia Enterocolitica Not Detected (NOT DETECT)
== END | disposition home or self-care (01) ==
LOC: LAB EV 15:00
PROVIDERS: Internal Medicine Gastroenterology
DX: R19.7 Diarrhea, unspecified (principal)
CPT/HCPCS: 0097U; 87324

== ENCOUNTER 2019-02-02 08:11 | Day surgery (SDC) | payer MEDICARE, BC ==
[~2019-02-02] VITALS: Ht 165.1 cm; Wt 85.8 kg
--- NOTE | 2019-02-02 09:36 | NUR ---
02/02/19 0936 Enid Hansen 1 IV MISS IN RAC BY ODETTE VALVE 1 IV MISS INRFA BY RN VEIN BLEW 1 IV MISS IN RAC BY RN VALVE 1 GOOD IV IN RFA BY RN PT TOW
--- NOTE | 2019-02-02 10:08 | NUR ---
02/02/19 1008 Jessica Go UPPER ENDOSCOPY WAS NOT PREFORMED DUE TO HTN DURING COLONOSCOPY
== END 2019-02-02 10:28 | disposition home or self-care (01) ==
LOC: ORSCSDS 08:11
PROVIDERS: Internal Medicine Gastroenterology
PROC: 0DBN8ZX Excision of Sigmoid Colon, Via Natural or Artificial Opening Endoscopic, Diagnostic (ICD-10-PCS; principal; 2019-02-02 09:45)
DX: K92.1 Melena (principal); R10.84 Generalized abdominal pain; K22.70 Barrett's esophagus without dysplasia; K52.9 Noninfective gastroenteritis and colitis, unspecified; E11.9 Type 2 diabetes mellitus without complications; E78.00 Pure hypercholesterolemia, unspecified; E03.9 Hypothyroidism, unspecified; Z79.82 Long term (current) use of aspirin; Z79.899 Other long term (current) drug therapy
CPT/HCPCS: 82947; 88305; J2704; J7120

== ENCOUNTER 2020-05-14 09:04 | Day surgery (SDC) | payer MEDICARE, BC ==
[~2020-05-14] VITALS: Ht 165.1 cm; Wt 89.0 kg
[~2020-05-14 09:04] MED LIST changes: +ASPI81CH PO; +ATOR20 PO; +Isosorbide Mono30 MG PO; +METO25ER PO; +TELM20 PO
[2020-05-14 10:23] LABS: BASOPHILS ABSOLUTE AUTO 0.03 K/mm3 (0.00-0.23); BASOPHILS PERCENT AUTO 1 % (0-2); EOSINOPHILS ABSOLUTE AUTO 0.11 K/mm3 (0.00-0.68); EOSINOPHILS PERCENT AUTO 3 % (0-6); Hematocrit 42.2 % (33.0-51.0); IMMATURE GRAN ABSOLUTE AUTO 0.01 K/mm3 (0.00-0.10); IMMATURE GRAN PERCENT AUTO 0 % (0-1); LYMPHOCYTES ABSOLUTE AUTO 1.36 K/mm3 (0.84-5.20); LYMPHOCYTES PERCENT AUTO 31 % (21-46); MONOCYTES ABSOLUTE AUTO 0.59 K/mm3 (0.16-1.47); MONOCYTES PERCENT AUTO 13 % (4-13); Mean Corpuscular HGB 31.4 pg (26.0-34.0); Mean Corpuscular HGB Conc 33.2 g/dL (31.5-36.5); Mean Corpuscular Volume 95 fL (80-100); Mean Platelet Volume 10.4 fL (9.1-12.4); NEUTROPHILS ABSOLUTE AUTO 2.31 K/mm3 (1.96-9.15); NEUTROPHILS PERCENT AUTO 52 % (41-73); Platelet Count 238 K/mm3 (150-400); RDW Coefficient Variation 12.5 % (11.7-14.2); RDW Standard Deviation 43.4 fL (35.1-46.3); Red Blood Cell Count 4.46 M/mm3 (3.80-5.20); White Blood Cell Count 4.41 K/mm3 (4.00-11.30)
[2020-05-14 10:32] LABS: International Normalized Ratio 0.95; Prothrombin Time Results 10.2 Sec (9.7-11.5)
[2020-05-14 10:44] LABS: Anion Gap 8 mmol/L (6-16); Blood Urea Nitrogen 20 mg/dL (8-24); Bun/Creatinine Ratio 27.8 (12.0-20.0); CO2, Blood 20 mmol/L (21-32); Calcium, Blood 9.8 mg/dL (8.5-10.1); Chloride, Blood 114 mmol/L (98-108); Creatinine, Blood 0.72 mg/dL (0.40-1.00); Glomerular Filtration Rate >60 (60-); Glucose, Blood 223 mg/dL (70-99); Potassium, Blood 3.8 mmol/L (3.5-5.5); Sodium, Blood 142 mmol/L (136-145)
--- NOTE | 2020-05-14 12:21 | NUR ---
1210 PATIENT RETURNED TO RECOVERY ROOM. RFA WITH ANGIOSEAL AND DRESSING CDI. PULSES NOTED TO THE DISTAL LIMB. NO PAIN NOTED FROM THE PATIENT. PATIENT PLACED ON THE MONITOR ADN CALL LIGHT IN REACH. SIDE RAILS UP X 2 AND HOB FLAT IN REVERSE TRENDELENBERG. IVF INFUSING AT 100 ML/HR. REPORT FROM HERMELINDA YOUSSEF
--- NOTE | 2020-05-14 14:58 | NUR ---
PATIENT SLEEPING, HOB FLAT, RIGHT LEG STRAIGHT, SLEEPING, WAKES WHEN DISTURBED AND FALLS BACK TO SLEEP. RFA UNCHANGED, CDI. CALL LIGHT IN REACH.
--- NOTE | 2020-05-14 15:43 | NUR ---
PATIENT UP TO THE RESTRROM WITH ASSIST. GAIT STEADY. NO CHANGE IN RIGHT GROIN. DRESSINF CDI.
--- NOTE | 2020-05-14 16:06 | NUR ---
PATIENT UP AND DRESSED SELF. ALL BELONGINGS GATHERED AND REVIEWED ALL DISCHARGE INSTRUCTIONS. VVS. GROIN UNCHANGED. DRESSING CDI. ALL QUESTIONS ANSWERED FROM PATIENT AND FAMILY. PATIENT WHEELCHAIRED TO THE EXIT ADN PLACED IN FAMILY CAR WITH SON DRIVING. ALL QUESTIONS FROM THE FAMILY ANSWERED. PIV WAS REMOVED PRIOR TO DISCHARGE, CATHETER TIP INTACT.
== END 2020-05-14 16:00 | disposition home or self-care (01) ==
LOC: MHTC 09:04
PROVIDERS: Internal Medicine Interventional Cardiology
PROC: B2111ZZ Fluoroscopy of Multiple Coronary Arteries using Low Osmolar Contrast (ICD-10-PCS; principal; 2020-05-14)
PROC: B2151ZZ Fluoroscopy of Left Heart using Low Osmolar Contrast (ICD-10-PCS; principal; 2020-05-14)
DX: I25.119 Atherosclerotic heart disease of native coronary artery with unspecified angina pectoris (principal); I10 Essential (primary) hypertension; I27.20 Pulmonary hypertension, unspecified; E78.5 Hyperlipidemia, unspecified; E03.9 Hypothyroidism, unspecified; E11.9 Type 2 diabetes mellitus without complications; Z86.73 Personal history of transient ischemic attack (TIA), and cerebral infarction without residual deficits; Z79.84 Long term (current) use of oral hypoglycemic drugs; Z79.82 Long term (current) use of aspirin; Z79.899 Other long term (current) drug therapy; Z88.5 Allergy status to narcotic agent; Z88.8 Allergy status to other drugs, medicaments and biological substances; Z91.041 Radiographic dye allergy status; Z91.011 Allergy to milk products; Z91.013 Allergy to seafood; Z91.018 Allergy to other foods; Z87.891 Personal history of nicotine dependence
CPT/HCPCS: 36415; 80048; 85025; 85347; 85610; 93005; 93010; 93458; 93571; 99152; 99153; C1760; C1769; C1887; C1894; J1200; J1644; J1720; J2250; J3010; J7030; J7050; Q9967

== ENCOUNTER 2022-02-03 02:12 | Emergency (ER) | payer MEDICARE ==
[~2022-02-03] VITALS: Ht 165.1 cm; Wt 74.8 kg
[2022-02-03 02:46] LABS: BASOPHILS ABSOLUTE AUTO 0.02 K/mm3 (0.00-0.23); BASOPHILS PERCENT AUTO 1 % (0-2); EOSINOPHILS PERCENT AUTO 0 % (0-6); Hematocrit 43.6 % (33.0-51.0); Hemoglobin 15.5 g/dL (11.5-16.0); IMMATURE GRAN PERCENT AUTO 0 % (0-1); LYMPHOCYTES ABSOLUTE AUTO 0.63 K/mm3 (0.84-5.20); LYMPHOCYTES PERCENT AUTO 21 % (21-46); MONOCYTES ABSOLUTE AUTO 0.42 K/mm3 (0.16-1.47); MONOCYTES PERCENT AUTO 14 % (4-13); Mean Corpuscular HGB 31.4 pg (26.0-34.0); Mean Corpuscular HGB Conc 35.6 g/dL (31.5-36.5); Mean Corpuscular Volume 88 fL (80-100); Mean Platelet Volume 10.4 fL (9.1-12.4); NEUTROPHILS PERCENT AUTO 65 % (41-73); Platelet Count 165 K/mm3 (150-400); RDW Coefficient Variation 11.7 % (11.7-14.2); RDW Standard Deviation 37.5 fL (35.1-46.3); Red Blood Cell Count 4.94 M/mm3 (3.80-5.20); White Blood Cell Count 3.07 K/mm3 (4.00-11.30)
[2022-02-03 03:04] LABS: Albumin, Blood 3.5 g/dL (3.4-5.0); Bilirubin, Total 0.4 mg/dL (0.1-1.0); Bun/Creatinine Ratio 25.2 (12.0-20.0); Calcium, Blood 8.2 mg/dL (8.5-10.1); Creatinine, Blood 0.68 mg/dL (0.40-1.00); Globulin, Blood 3.4 g/dL (2.2-4.0); Potassium, Blood 3.9 mmol/L (3.5-5.5); Total Protein, Blood 6.9 g/dL (6.4-8.2)
[2022-02-03 04:19] LABS: Source, Urine Voided
[2022-02-03 04:24] LABS: Bilirubin, Urine Neg (Neg); Blood, Urine 1+ (Neg); Glucose Qualitative, Urine Neg (Neg); Ketones, Urine 2+ (Neg); Leukocyte Esterase, Urine Neg (Neg); Nitrite, Urine Neg (Neg); Protein, Urine 2+ (Neg); Specific Gravity, Urine 1.005 (1.003-1.022); Urobilinogen, Urine NORM (Normal)
[2022-02-03 04:35] LABS: Appearance, Urine Clear (Clear); Color, Urine Yellow (P-Yellow); White Blood Cells, Urine Not Seen /hpf (0-5)
[2022-02-03 04:36] LABS: Bacteria Not Seen /hpf; Red Blood Cells, Urine 0-2 /hpf (0-2); Squamous Epithelial Cells Not Seen /hpf (Few)
== END 2022-02-03 08:24 | disposition home or self-care (01) ==
LOC: ER 02:12
PROVIDERS: Emergency Medicine
DX: R50.9 Fever, unspecified (principal); E11.9 Type 2 diabetes mellitus without complications; I10 Essential (primary) hypertension; E03.9 Hypothyroidism, unspecified; Z79.899 Other long term (current) drug therapy; Z91.013 Allergy to seafood; Z88.5 Allergy status to narcotic agent; Z88.8 Allergy status to other drugs, medicaments and biological substances; Z91.018 Allergy to other foods; Z79.82 Long term (current) use of aspirin; Z87.891 Personal history of nicotine dependence
CPT/HCPCS: 36415; 80053; 81001; 85025; A9270; J7030

== ENCOUNTER 2022-05-30 11:27 | Day surgery (SDC) | payer MEDICARE ==
[~2022-05-30] VITALS: Ht 165.1 cm; Wt 81.4 kg
[2022-05-30] MEDS ORDERED: GLIM2 (11:58)
[2022-05-30] MEDS ORDERED: DOCU100 (11:58)
[2022-05-30] MEDS ORDERED: TRULICITY1.5 MG/0.1 (11:59)
[2022-05-30] MEDS ORDERED: LUBIPROSTONE (11:59)
== END 2022-05-30 14:14 | disposition home or self-care (01) ==
LOC: ORSCSDS 11:27
PROVIDERS: Internal Medicine Gastroenterology
PROC: 0DB58ZX Excision of Esophagus, Via Natural or Artificial Opening Endoscopic, Diagnostic (ICD-10-PCS; principal; 2022-05-30 12:45)
DX: K22.70 Barrett's esophagus without dysplasia (principal); R79.89 Other specified abnormal findings of blood chemistry; K20.90 Esophagitis, unspecified without bleeding; E11.9 Type 2 diabetes mellitus without complications; I25.2 Old myocardial infarction; E66.9 Obesity, unspecified; Z68.30 Body mass index [BMI] 30.0-30.9, adult; Z79.899 Other long term (current) drug therapy
CPT/HCPCS: 82947; 88305; J0330; J0461; J2405; J2704; J7120; Q9968

== ENCOUNTER 2024-08-10 15:56 | Emergency (ER) | payer OTHER ==
[~2024-08-10] VITALS: Ht 165.1 cm; Wt 90.3 kg
[~2024-08-10 15:56] MED LIST changes: +DICY20 PO; +DOCU100; +DOXY100 PO; +FURO20; +GLIM2; +LUBIPROSTONE; +NITR.4SL SL; +TRAM50 PO; +TRULICITY1.5 MG/0.1
[2024-08-10 16:30] LABS: Base Excess Venous -2.3 mmol/L; Bicarbonate Venous 22.6 mmol/L (24.0-30.0); PCO2 Venous 38.6 mmHg (38-42); pH Blood Venous 7.38 (7.34-7.37)
[2024-08-10 16:34] LABS: BASOPHILS ABSOLUTE AUTO 0.02 K/mm3 (0.00-0.23); BASOPHILS PERCENT AUTO 0 % (0-2); EOSINOPHILS PERCENT AUTO 4 % (0-6); Hematocrit 42.2 % (33.0-51.0); Hemoglobin 14.2 g/dL (11.5-16.0); IMMATURE GRAN ABSOLUTE AUTO 0.01 K/mm3 (0.00-0.10); IMMATURE GRAN PERCENT AUTO 0 % (0-1); LYMPHOCYTES ABSOLUTE AUTO 1.77 K/mm3 (0.84-5.20); LYMPHOCYTES PERCENT AUTO 31 % (21-46); MONOCYTES ABSOLUTE AUTO 0.65 K/mm3 (0.16-1.47); MONOCYTES PERCENT AUTO 11 % (4-13); Mean Corpuscular HGB 31.4 pg (26.0-34.0); Mean Corpuscular HGB Conc 33.6 g/dL (31.5-36.5); Mean Corpuscular Volume 93 fL (80-100); Mean Platelet Volume 11.1 fL (9.1-12.4); NEUTROPHILS ABSOLUTE AUTO 3.12 K/mm3 (1.96-9.15); NEUTROPHILS PERCENT AUTO 54 % (41-73); Platelet Count 176 K/mm3 (150-400); RDW Coefficient Variation 13.5 % (11.7-14.2); RDW Standard Deviation 46.4 fL (35.1-46.3); Red Blood Cell Count 4.52 M/mm3 (3.80-5.20); White Blood Cell Count 5.77 K/mm3 (4.00-11.30)
[2024-08-10] MEDS ORDERED: AIRSUPRA 90-810.7 GM INH (16:41)
[2024-08-10 17:30] LABS: Albumin, Blood 3.7 g/dL (3.4-5.0); Albumin/Globulin Ratio 1.2 (0.8-1.8); Beta-hydroxybutyrate 10.2 mg/dL (0.2-2.8); Bilirubin, Total 0.5 mg/dL (0.1-1.0); Bun/Creatinine Ratio 21.9 (12.0-20.0); Calcium, Blood 8.8 mg/dL (8.5-10.1); Creatinine, Blood 1.05 mg/dL (0.40-1.00); Globulin, Blood 3.2 g/dL (2.2-4.0); Potassium, Blood 4.3 mmol/L (3.5-5.5); Total Protein, Blood 6.9 g/dL (6.4-8.2)
[2024-08-10 17:52] VITALS: BP 168/76
== END 2024-08-10 18:00 | disposition home or self-care (01) ==
LOC: ER 15:56
PROVIDERS: Student in an Organized Health Care Education/Training Program
DX: E11.65 Type 2 diabetes mellitus with hyperglycemia (principal); I10 Essential (primary) hypertension; E03.9 Hypothyroidism, unspecified; Z86.73 Personal history of transient ischemic attack (TIA), and cerebral infarction without residual deficits; Z87.891 Personal history of nicotine dependence; Z88.5 Allergy status to narcotic agent; Z88.8 Allergy status to other drugs, medicaments and biological substances; Z91.013 Allergy to seafood; Z91.018 Allergy to other foods; Z79.4 Long term (current) use of insulin; Z79.899 Other long term (current) drug therapy
CPT/HCPCS: 36415; 80053; 82010; 82803; 85025; 99283